=== PATIENT | female | born 1990 | race African-American/Black ===

== ENCOUNTER 2016-05-14 18:54 | Emergency (ER) | payer BC, OTHER ==
[~2016-05-14] VITALS: Ht 165.1 cm; Wt 72.6 kg
[~2016-05-14 18:54] MED LIST: BACTRIM DS TAB1 EACH PO; CHERACOL COUGH120 ML PO; CIPROFLOXACIN500 M1 PO; CLEOCIN HCL300 MG PO; DIFLUCAN150 MG PO; FLAGYL500 MG PO; IBUPROFEN 400400 M1 PO; IBUPROFEN 600600 M1 PO; LORTAB 5 MG/5001 TA1 PO; MACROBID 100 M100 M1 PO; NAPROSYN500 MG PO; NOHOMEMEDICATIONS; NORCO 5-325 TA1 EACH PO; PRENATAL PO; PROBIOTIC1 EAC1 PO; PYRIDIUM200 M1 PO; TRAMADOL 50 MG50 MG PO; TRINATE TABLET1 TAB PO; VANDAZOLE GEL 070 GM VG; ZPAK PO; ZYRTEC10 M2 PO
[2016-05-14] MEDS ORDERED: MACROBID 100 M100 M1 PO (20:02)
[2016-05-14 20:05] LABS: URINE BILIRUBIN NEGATIVE (Negative); URINE BLOOD TRACE (Negative); URINE COLOR YELLOW; URINE GLUCOSE-RANDOM* NEGATIVE (Negative); URINE KETONES NEGATIVE (Negative); URINE LEUKOCYTES-REFLEX NEGATIVE (Negative); URINE PROTEIN (DIPSTICK) NEGATIVE (Negative); URINE SPECIFIC GRAVITY >= 1.030 (1.003-1.035); URINE UROBILINOGEN 0.2 E.U./dl (0.2-1.0)
[2016-05-14] MEDS ORDERED: FACTIVE PO (20:19)
[2016-05-14 20:33] VITALS: BP 118/67
== END 2016-05-14 20:33 | disposition home or self-care (01) ==
LOC: ER 18:54
PROVIDERS: Physician Assistant
DX: S63.502A Unspecified sprain of left wrist, initial encounter (principal); N39.0 Urinary tract infection, site not specified; F12.10 Cannabis abuse, uncomplicated; Z88.6 Allergy status to analgesic agent; Z88.8 Allergy status to other drugs, medicaments and biological substances; Z87.891 Personal history of nicotine dependence; X50.9XXA Other and unspecified overexertion or strenuous movements or postures, initial encounter; Y93.89 Activity, other specified; Y92.89 Other specified places as the place of occurrence of the external cause; Y99.9 Unspecified external cause status

== ENCOUNTER 2016-05-24 14:51 | Emergency (ER) | payer BC, OTHER ==
[~2016-05-24] VITALS: Ht 165.1 cm; Wt 72.6 kg
[~2016-05-24 14:51] MED LIST changes: +FACTIVE PO
[2016-05-24 15:05] LABS: URINE BILIRUBIN NEGATIVE (Negative); URINE BLOOD NEGATIVE (Negative); URINE COLOR YELLOW; URINE GLUCOSE-RANDOM* NEGATIVE (Negative); URINE KETONES NEGATIVE (Negative); URINE NITRITE NEGATIVE (Negative); URINE PROTEIN (DIPSTICK) NEGATIVE (Negative); URINE UROBILINOGEN 0.2 E.U./dl (0.2-1.0)
[2016-05-24] MEDS ORDERED: FLAGYL500 MG PO (16:11)
[2016-05-24] MEDS ORDERED: MOBIC15 MG PO (16:11)
[2016-05-24 16:49] VITALS: BP 112/75
[2016-05-27 18:06] LABS: CHLAMYDIA TRACHOMATIS-PCR Negative (Negative); NEISSERIA GONORRHEA-PCR Negative (Negative)
== END 2016-05-24 16:50 | disposition home or self-care (01) ==
LOC: ER 14:51
PROVIDERS: Physician Assistant
DX: N89.8 Other specified noninflammatory disorders of vagina (principal); M67.432 Ganglion, left wrist; Z88.6 Allergy status to analgesic agent; Z88.8 Allergy status to other drugs, medicaments and biological substances; Z87.891 Personal history of nicotine dependence